=== PATIENT | female | born 1960 | race Caucasian/White ===

== ENCOUNTER → 2021-07-29 | Outpatient (CLI) | payer MEDICAID ==
[2019-11-09 15:00] VITALS: BP 163/72
[~2021-07-29] MED LIST: ACET325T9 PO; ESTR-113 PO; HYDR25TA PO; MAGN400T48 PO; METO-239 PO; METO25TA4 PO; NYST100054 PO; PALI3TAB PO; PRAV40TA2 PO; SERT100T PO; TRAZ-118 PO; VENL75TA2 PO
--- NOTE | 2021-07-30 10:38 | CARD ---
MR#: [id number] Date of Study: 07/29/2021 Ordering Physician: LUTHER CARRILLO, Referring Physician: LUTHER CARRILLO, Tech: Bella Flores, [facility] APPROVED REPORT EXAM: Two-dimensional and M-mode echocardiogram with Doppler and color Doppler. Other Information Quality : FairHR: 76bpm Technically limited study due to body habitus and restless patient INDICATION Arrhythmia Sick Sinus Syndrome 2D DIMENSIONS Left Atrium(2D)3.1 (1.6-4.0cm)IVSd1.0 (0.7-1.1cm) Aortic Root(2D)3.0 (2.0-3.7cm)LVDd5.0 (3.9-5.9cm) LVOT Diameter2.1 (1.8-2.4cm)PWd1.0 (0.7-1.1cm) LVDs3.4 (2.5-4.0cm)FS (%) 32.7 % SV73.2 ml Aortic Valve AoV Peak Domingo.118.6cm/sAoV VTI23.1cm AO Peak GR.5.6mmHgLVOT Peak Domingo.107.3cm/s LVOT VTI 14.90cmAO Mean GR.3mmHg SANG (VMAX)3.00ro1OEQ (VTI)2.16cm2 Mitral Valve MV E Qhwnefaf37.1cm/sMV DECEL XLDR118si MV A Mmtxevdp491.5cm/sMV ZOW84hb E/A Ratio0.8MVA (PHT)4.76cm2 TDI E/Lateral E'14.2E/Medial E'13.1 Pulmonary Valve PV Peak Oedymwix20.9cm/sPV Peak Grad.3mmHg Tricuspid Valve TR P. Pgqbyapg229jw/sRAP VTDUWIJV5hpFe TR Peak Gr.03cwRoDJRP78jhXp LEFT VENTRICLE The left ventricle is normal size. There is mild concentric left ventricular hypertrophy. The left ve ntricular systolic function is normal and the ejection fraction is within normal range. The Ejection Fraction is 50-55%. There is normal LV segmental wall motion. Transmitral Doppler flow pattern is Gra de I-abnormal relaxation pattern. RIGHT VENTRICLE The right ventricle is normal size. There is normal right ventricular wall thickness. The right ventr icular systolic function is normal. ATRIA The left atrium size is normal. The right atrium size is normal. The interatrial septum is intact wit h no evidence for an atrial septal defect or patent foramen ovale as noted on 2-D or Doppler imaging. AORTIC VALVE The aortic valve is normal in structure and function. Doppler and Color Flow revealed no significant aortic regurgitation. There is no significant aortic valvular stenosis. Calculated aortic valve area is 2.13 cm2 with maximum pressure gradient of 7 mmHg and mean pressure gradient of 4 mmHg. MITRAL VALVE The mitral valve is normal in structure and function. There is no evidence of mitral valve prolapse. There is no mitral valve stenosis. Doppler and Color Flow revealed no mitral valve regurgitation note d. TRICUSPID VALVE The tricuspid valve is normal in structure and function. Doppler and Color Flow revealed trace tricus pid regurgitation with an estimated PAP of 27 mmHg. There is no tricuspid valve stenosis. PULMONIC VALVE The pulmonic valve is not well visualized. Doppler and Color Flow revealed trace pulmonic valvular re gurgitation. GREAT VESSELS The aortic root is normal in size. The IVC is normal in size and collapses >50% with inspiration. PERICARDIAL EFFUSION There is no evidence of significant pericardial effusion. Critical Notification Critical Value: No <Conclusion> The left ventricle is normal size. The left ventricular systolic function is normal and the ejection fraction is within normal range. The Ejection Fraction is 50-55%. There is mild concentric left ventricular hypertrophy. Doppler and Color Flow revealed no significant aortic regurgitation. There is no significant aortic valvular stenosis. Doppler and Color Flow revealed no mitral valve regurgitation noted. Doppler and Color Flow revealed trace tricuspid regurgitation with an estimated PAP of 27 mmHg. Signed by : Davon Ibarra MD Electronically Approved : 07/30/2021 10:38:06
== END ==
LOC: ECHO 09:13
PROVIDERS: ATTEND Internal Medicine Cardiovascular Disease
DX: I51.7 Cardiomegaly (principal); I49.5 Sick sinus syndrome
CPT/HCPCS: 93306